=== PATIENT | female | born 1995 | race Caucasian/White ===

== ENCOUNTER → 2017-10-14 | Outpatient (CLI) | payer OTHER ==
[~2017-10-14] MED LIST: DEXM10TA PO; DEXM20CA PO; ESCI1TAB10 PO; HYDR-5688 PO
== END | disposition home or self-care (01) ==
LOC: C.LAB 21:16
PROVIDERS: ATTEND Physician Assistant
DX: J02.9 Acute pharyngitis, unspecified (principal)

== ENCOUNTER → 2018-06-15 | Outpatient (CLI) | payer OTHER ==
--- NOTE | 2018-06-15 12:21 | DIAGNOSTIC IMAGING REPORT ---
PELVIC ULTRASOUND, TRANSABDOMINAL AND TRANSVAGINAL HISTORY: HEAVY MENSTRUAL BLEEDING, WEIGHT GAIN, LEG EDEMA COMPARISON: None. FINDINGS: Uterus: 7.9 x 5.9 x 3.1 cm. No uterine masses. Endometrial stripe: 1.3 cm in thickness. Right ovary: Normal in size and demonstrates normal color flow. Left ovary: Normal in size and demonstrates normal color flow. Miscellaneous:No pelvic free fluid. IMPRESSION: No significant abnormality identified within the pelvis. Electronically signed by: Surya Reeder M.D. 06/15/2018 12:19 PM Dictated Date/Time: 06/15/2018 12:11 PM
== END | disposition home or self-care (01) ==
LOC: C.ULTR 11:07
PROVIDERS: ATTEND Nurse Practitioner Family
DX: N92.0 Excessive and frequent menstruation with regular cycle (principal); R60.0 Localized edema; R63.5 Abnormal weight gain